=== PATIENT | male | born 1985 | race Caucasian/White ===

== ENCOUNTER → 2018-02-28 14:42 | Outpatient (CLI) | payer OTHER, SELFPAY ==
--- NOTE | 2018-02-28 | DI.RAD.S_ITS ---
PROCEDURE: XR HAND RT MIN 3V INDICATIONS: RIGHT HAND PAIN, CARYN 4TH AND 5TH METATARSAL TECHNIQUE: 3 views of the hand(s) acquired. COMPARISON: None. FINDINGS: Bones: No dislocations. Carpal bones are normally aligned. No suspicious bony lesions. There is a boxer's fracture of the fifth metacarpal head/neck junction, but a fracture involving the fourth metacarpal is not seen. Soft tissues: No suspicious soft tissue calcifications. IMPRESSION: Boxer's fracture of the fifth metacarpal distally, with fracture across the head/neck junction and palmar angulation that appears acute rather than chronic. No additional injury is seen. Dictated by: Malcom Salazar M.D. on 02/28/2018 at 15:13 Approved by: Malcom Salazar M.D. on 02/28/2018 at 15:14
== END ==
PROVIDERS: PCP Family Medicine; Visit Provider Family Medicine
DX: S62.336A Displaced fracture of neck of fifth metacarpal bone, right hand, initial encounter for closed fracture (principal); M79.641 Pain in right hand
CPT/HCPCS: 73130

== ENCOUNTER → 2021-07-15 15:24 | Outpatient (CLI) | payer OTHER, SELFPAY ==
--- NOTE | 2021-07-15 | DI.RAD.S_ITS ---
PROCEDURE: XR HAND LT MIN 3V INDICATIONS: bilat hand pain TECHNIQUE: Three views of the hand acquired. COMPARISON: [facility], CR, XR HAND RT MIN 3V, 02/28/2018, 14:27. FINDINGS: Bones: No acute fractures or dislocations. Carpal bones are normally aligned. No suspicious bony lesions. Mild osseous irregularity is seen at the base of the 1st proximal phalanx with an adjacent soft tissue ossification, possibly the sequela of prior trauma. Otherwise, no signs of significant osteoarthrosis or an inflammatory arthritis. Soft tissues: No suspicious soft tissue calcifications. IMPRESSION: No acute osseous abnormality. If the symptoms persist, consider cross sectional imaging such as MRI or CT for further assessment. Dictated by: Juan Montalvo M.D. on 07/15/2021 at 16:36 Approved by: Juan Montalvo M.D. on 07/15/2021 at 16:38
--- NOTE | 2021-07-15 | DI.RAD.S_ITS ---
PROCEDURE: XR HAND RT MIN 3V INDICATIONS: bilat hand pain TECHNIQUE: 3 views of the hand acquired. COMPARISON: [facility], CR, XR HAND RT MIN 3V, 02/28/2018, 14:27. FINDINGS: Bones: No acute fractures or dislocations. Chronic posttraumatic deformity of the 5th metacarpal neck. No significant arthritic changes are seen in the hand. Carpal bones are normally aligned. No suspicious bony lesions. Soft tissues: No suspicious soft tissue calcifications. IMPRESSION: No acute osseous abnormality. If the symptoms persist, consider cross sectional imaging such as MRI or CT for further assessment. Dictated by: Juan Montalvo M.D. on 07/15/2021 at 16:38 Approved by: Juan Montalvo M.D. on 07/15/2021 at 16:39
== END ==
PROVIDERS: Family Provider Family Medicine; PCP Family Medicine; Referring Provider Family Medicine; Visit Provider Family Medicine
DX: M79.642 Pain in left hand (principal); M79.641 Pain in right hand
CPT/HCPCS: 73130

== ENCOUNTER → 2023-11-30 14:44 | Outpatient (CLI) | payer OTHER, SELFPAY ==
--- NOTE | 2023-11-30 14:47 | DI.RAD.S_ITS ---
PROCEDURE: XR SHOULDER LT MIN 2V INDICATIONS: SHOULDER PAIN TECHNIQUE: 3 views of the shoulder were acquired. COMPARISON: None. FINDINGS: Bones: No fractures or dislocations. No suspicious bony lesions. Normal glenohumeral alignment. Acromioclavicular and coracoclavicular intervals are maintained. Visualized ribs appear intact. Soft tissues: No suspicious soft tissue calcifications. IMPRESSION: 1. No acute bony abnormality. 2. No significant degenerative changes. Dictated by: Danielle uQarles M.D. on 12/01/2023 at 15:54 Approved by: Danielle Quarles M.D. on 12/01/2023 at 15:55
== END ==
PROVIDERS: Family Provider Family Medicine; PCP Family Medicine; Referring Provider Family Medicine; Visit Provider Family Medicine
DX: M25.512 Pain in left shoulder (principal)
CPT/HCPCS: 73030